=== PATIENT | female | born 1970 | race Caucasian/White ===

== ENCOUNTER → 2017-01-10 | Outpatient (CLI) | payer BC ==
[2017-01-11 15:10] LABS: BLOOD UREA NITROGEN 16 mg/dL (7-22); BUN/CREATININE RATIO 22.85 (6-20); CALCIUM 9.6 mg/dL (8.7-10.7); EST GLOMERULAR FILTRATION > 60 (>60 ml/min/1.73m(2)); SERUM ALBUMIN 3.9 g/dL (3.5-4.8)
== END ==
LOC: LAB 13:21
PROVIDERS: ATTEND Physician Assistant Medical
DX: K59.09 Other constipation (principal); R11.2 Nausea with vomiting, unspecified
CPT/HCPCS: 36415; 80053; 84443

== ENCOUNTER 2017-04-27 08:10 | Observation (INO) ==
[2017-04-27] MEDS ORDERED: NORMAL SALINE 10 ML SYRINGE FLUSH IVP PRN ×2 (08:33→11:17)
[2017-04-27] MEDS ORDERED: Sodium Chloride 0.9% 1,000 ML PRIMARY IV ONE ×2 (08:33→11:23)
--- NOTE | 2017-04-27 08:35 | EKG ---
[address] [address] Measurements Intervals [place] Rate: 73 P: 52 [place]: 132 QRS: 41 QRSD: 94 T: 45 QT: 380 QTc: 406 Interpretive Statements SINUS RHYTHM No previous ECG available for comparison Electronically Signed On 04-28-17 12:48:35 MST by John Cheng [email or web address]
[2017-04-27 08:52] LABS: Hematocrit [HCT] 39.6 % (37.0-47.0); Hemoglobin [HGB] 13.4 g/dL (12.0-16.0); MEAN CORPUSCULAR HEMOGLOBIN 32.6 PG (27-31); MEAN CORPUSCULAR HGB CONC 33.7 g/dL (33-37); MEAN CORPUSCULAR VOLUME 97 FL (81-99); MEAN PLATELET VOLUME 7.7 FL (7.4-12.2); MONOCYTES % (AUTO) 7.1 % (5-15); NEUTROPHILS % (AUTO) 74.5 % (50-80)
[2017-04-27 08:54] LABS: BASOPHILS # (AUTO) 0.03 10*3/UL; BASOPHILS % (AUTO) 0.4 % (0-1); EOSINOPHILS # (AUTO) 0.06 10*3/UL; EOSINOPHILS % (AUTO) 0.7 % (0-8); LYMPHOCYTES # (AUTO) 1.39 10*3/uL; MONOCYTES # (AUTO) 0.57 10*3/UL (0.3-0.8); NEUTROPHILS # (AUTO) 5.97 10*3/UL; PLATELET MORPHOLOGY COMMENT NORMAL MORPHOLOGY (NORM); RBC MORPHOLOGY COMMENT NORMAL MORPHOLOGY (NORM); WBC MORPHOLOGY COMMENT NORMAL MORPHOLOGY (NORM)
[2017-04-27 09:01] LABS: BLOOD UREA NITROGEN 20 mg/dL (7-22); BUN/CREATININE RATIO 28.57 (6-20); SERUM ALBUMIN 3.7 g/dL (3.5-4.8)
--- NOTE | 2017-04-27 09:48 | PDOC ---
Syncope/Near-Syncope HPI - General Chief Complaint: Syncope / Near-Syncope Stated Complaint: passing out Date Seen by Provider: 04/27/17 Time Seen by Provider: 08:12 Source: POSITIVE: Patient, Spouse Exam Limitations: POSITIVE: No limitations Nurse's Notes Reviewed & Considered: Yes - History of Present Illness Initial Comments: The patient is a 46-year-old female. She is brought to the emergency room by her . Patient states that for the past 10 days, approximately, she has had episodes of feeling "lightheaded" when she stands. Her symptoms usually moi when she sits. She states that when she gets these episodes she feels "hot". She states that she has passed out twice, the last time being approximately one week ago. 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 Patient also states that she has had some epigastric discomfort during this time and some diarrhea. She states she's had 5 loose bowel movements in the past 24 hours which range in color from "yellow to black. Patient has had a hysterectomy, cholecystectomy , and she thinks she had a appendectomy associated with her cholecystectomy. She's had a left hip replacement. No vomiting. On arrival the patient's blood pressure, left, was 116/84 with a pulse of 84 and standing was 52/45 with a pulse of 90. On the right side her blood pressure was 115/76 with a pulse of 81 sitting and her blood pressure was 111/76 with a pulse of 94 standing. Patient has not had any chest pain. No palpitations. Body Location Affected: REPORTS: Other (Syncope and near syncope, diarrhea, epigastric discomfort.) Timing: REPORTS: Intermittent Duration: >1 week (10 days, approximately) Severity: Moderate Quality: REPORTS: "Pain" (Some associated epigastric abdominal discomfort) Episode Began at:: 07:00 Most Recent Episode:: 04/27/17 Witnessed? (By Whom:): Yes ( and coworkers) Symptoms Prior to Episode: REPORTS: Lightheaded, Other (Exacerbated by standing , relieved by sitting) Duration of Preceding Symptoms (in Minutes): 1 Character of Event(s): REPORTS: Lost Consciousness (2 over the past 10 days) Duration of LOC (minutes): 1 FSBS FORGESMITH: No Associated Symptoms: REPORTS: Abdominal Pain (Epigastric discomfort), Lightheadedness, Other (please comment) (Diarrhea) Recently seen/treated/hospitalized: No Any Prior Injuries Related to Current Complaint?: No - Patient Home Medications Home Medications: Home Medications Esomeprazole Magnesium [Nexium] 40 mg PO BID #60 cap 11/19/16 varenicline 1 mg tablet 1 mg PO BID #180 tab 03/26/17 conjugated estrogens 1.25 mg tablet 1.25 mg PO QD #90 tab 04/02/17 duloxetine 60 mg capsule,delayed release 60 mg PO QDAY #90 cap 04/02/17 suvorexant 20 mg tablet 20 mg PO QHS #30 tab 04/02/17 tramadol 50 mg tablet 50 mg PO TID 90 Days #270 tab 04/02/17 - Patient Allergies Allergies/Adverse Reactions: Allergies 3 Allergy/AdvReac Type Severity Reaction Status Date / Time No Known Allergies Allergy Verified 04/27/17 08:18 Past Medical History - heen HEENT History: Denies History Cardiovascular History: Denies History Respiratory History: Denies History Gastrointestinal History: Denies History Genitourinary History: Denies History Endocrine History: Denies History Musculoskeletal History: Denies History Neurological History: Migraines Blood Disorders: Denies History Psychiatric History: Depression History of Sexually Transmitted Diseases: No Female Reproductive History: Hysterectomy Cancer History: Denies History In Past Year Been Physically Harmed or Verbally Threatened: No History of MDRO: No History of Other Communicable Diseases: No Tobacco Use: Former Smoker In the Past 12 Months, Have Used or Abuse Any Substance: None Previous Surgical History: Yes Type / Date of Surgery: hyst, gb, tonsils, left total hip Past Medical History Reviewed: Reviewed - No Changes ROS - Limitations ROS Limitations: No Limitations Constitution: REPORTS: Denies Symptoms Cardiovascular: REPORTS: Denies Cardiac Symptoms Respiratory: REPORTS: Denies Resp Symptoms Neurological: REPORTS: Dizziness Gastrointestinal: REPORTS: Abdominal Pain (Epigastric), Diarrhea Endocrine: REPORTS: Fatigue Musculoskeletal: REPORTS: Denies MS Symptoms Genitourinary: REPORTS: Denies Symptoms Eyes: REPORTS: Denies Symptoms ENT: REPORTS: Denies Symptoms Skin: REPORTS: Denies Skin Symptoms Lympathic: REPORTS: Denies Lympathic Symptoms Immunologic: POSITIVE: Denies Symptoms Psychiatric: POSITIVE: Denies Psych Symptoms Syncope / Near-Syncope Exam - General Appearance General Appearance: POSITIVE: Alert, Cooperative, No Acute Distress, No Evidence of Trauma - HEENT HEENT: POSITIVE: Head Inspection Nml, Eyes Inspection Nml, Ears Inspection Nml, Nose Inspection Nml, Oral/Dental Inspect. Nml, Pharynx Inspect. Nml, PERRL, EOMI - Pupil Size Pupil Size: 3 mm: Bilateral - Neck / Back Neck/Back: POSITIVE: Supple, Non-Tender, No Carotid Bruit - Respiratory Respiratory: POSITIVE: No Respiratoy Distress, Breath Sounds Normal, No Pleuritic Chest Pain - Cardiovascular Cardiovascular: POSITIVE: Regular Rate and Rhythm, Heart Sounds Normal, Equal Pulses, Strong Pulses Peripheral Pulses: Radial (R): 2+, Radial (L): 2+ - Abdomen Abdomen: Soft: (All Quadrants), Normal Bowel Sounds: (All Quadrants), Denies Tenderness: (LUQ), (RLQ), (LLQ), No Splenomegaly: (All Quadrants), No Hepatomegaly: (All Quadrants), No Guarding: (All Quadrants), No Rebound: (All Quadrants), No Palpable Pulse: (All Quadrants), No Palpabale Mass: (All Quadrants), No Distention: (All Quadrants), No Rigidity: (All Quadrants) Additional Abdominal Details: Abdominal examination shows bowel sounds to be active. Patient does express some discomfort/pain on palpation over the epigastrium, with no masses, organomegaly or rebound. - Rectal Rectal: POSITIVE: Normal Rectal Exam, Heme Negative Stool, Normal Rectal Tone, Other (Stool is light brown to yellow in appearance. Loose. Hemoccult negative ) - Skin Skin: POSITIVE: Intact, Normal For Race, Warm, Dry, No Rash - Extremities Extremity: Non-Tender: (All Extremities), Normal ROM: (All Extremities), Normal Inspection: (All Extremities) - Neuro / Psych Higher Functions: POSITIVE: Oriented to Person, Oriented to Place, Oriented to Time, Normal Speech, Normal Cognition, Appropriate Mood, Appropriate Affect Cranial Nerves: POSITIVE: Normal As Tested, No Evidence of Acute CVA Cerebellar: POSITIVE: Normal As Tested Sensorimotor: POSITIVE: No Motor Deficits, No Sensory Deficits, Reflexes Normal , Symmetrical Images - Complete Complete: 1 - Some discomfort on palpation Syncope/Near-Syncope Progress - Results Reviewed by me Lab Results Reviewed by Me: Yes (coags and troponin normal) CBC and BMP: 04/27/17 08:40 04/27/17 08:40 EKG Interpreted/Reviewed By Me:: Yes (normal sinus rhythm; normal) EKG Interpretation:: POSITIVE: Normal Sinus Rhythm, Normal Rate, Normal Intervals, Normal [place], Normal QRS, Normal ST/T - Patient's Progress Pain Medication Addressed: POSITIVE: Not Applicable Re-examine Time: :25 Re-Examine Comment: Condition unchanged. Patient and her advised that I 'm not sure what the source of her syncope/near-syncope is. Patient admitted to hospitalist for further evaluation. Status: POSITIVE: Unchanged CVA/Syncope Quality Measure Initiative: POSITIVE: EKG. NEGATIVE: t-PA Considered - Consult Consult (If Yes, Name of Consulting MD & Time Called): Yes (Dr. Sharpe, hospitalist,[id number]) Consulting MD will see pt:: POSITIVE: [facility] Admit Counseled: POSITIVE: Patient, Family, RE: Lab Results, RE: DX, RE: Need for F/U Patient Care Time - Estimated PCT Patient Care Time (In Minutes): 50 Vital Signs - Recent Vital Signs Vital Signs: Vital Signs (Last 8 hours) Temp Pulse Pulse Pulse Pulse Resp BP 04/27/17 09:02 84 94 04/27/17 09:00 84 84 90 04/27/17 08:23 96.7 F L 84 18 107/61 BP BP BP Pulse Ox 04/27/17 09:02 115/78 111/76 04/27/17 09:00 107/61 116/84 56/45 04/27/17 08:23 97 - VS Reviewed Vital Signs Reviewed: Yes Discharge Clinical Impression: Syncope, Near syncope Discharge Disposition: Admit to Inpatient Follow Up With: BENITA MCCARTHY [Primary Care Provider] - Date Decision to Admit to Inpatient: 04/27/17 Time Decision to Admit to Inpatient: 09:20
[2017-04-27] MEDS ORDERED: LIDOCAINE W/ SODIUM BICARB 0.5 ML SYR SUBD PRN (11:17)
[2017-04-27] MEDS ORDERED: DOCUSATE 100 MG CAPSULE PO PRN (11:17)
[2017-04-27] MEDS ORDERED: CALCIUM CARBONATE 500 MG (TUMS) CHEWABLE TABLET PO PRN (11:17)
[2017-04-27] MEDS ORDERED: ONDANSETRON 4 MG/2 ML VIAL IVP PRN (11:17)
[2017-04-27] MEDS ORDERED: Sodium Chloride 0.9% 1,000 ML PRIMARY IV SCH (11:30)
--- NOTE | 2017-04-27 11:31 | PDOC ---
HPI - History of Present Illness History of Present Illness: This very nice 46-year-old female was brought into the emergency room by her because for the last 10 days she has been feeling lightheaded every time she stands up had 2 syncopal episodes already 1 week ago this morning she was working [employer] in the [employer] store had another near-syncope episode also had some diarrhea in the last 24 hours. In the ER blood pressure on arrival was 116/84 and a pulse of 84/when they stood her up it was 52/45 with a pulse of 90. She is doing fine now no chest pain nausea or vomiting Past Medical History Medical History: Patient is on insomnia medications and also on Chantix and PPI for heartburn Surgical History: Cholecystectomy appendectomy right hip replacement Tobacco Use: Former Smoker In the Past 12 Months, Have Used or Abuse Any of the Following Substance: None Medication / Allergies Home Medications: Home Medications Medication Instructions Recorded Confirmed Type Esomeprazole Magnesium [Nexium] 40 mg PO BID #60 cap 11/19/16 04/27/17 Rx varenicline 1 mg tablet 1 mg PO BID #180 tab 03/26/17 04/27/17 Rx conjugated estrogens 1.25 mg tablet 1.25 mg PO QD #90 tab 04/02/17 04/27/17 Rx duloxetine 60 mg capsule,delayed 60 mg PO QDAY #90 cap 04/02/17 04/27/17 Rx release suvorexant 20 mg tablet 20 mg PO QHS #30 tab 04/02/17 04/27/17 Rx tramadol 50 mg tablet 50 mg PO TID 90 Days #270 tab 04/02/17 04/27/17 Rx Allergies/Adverse Reactions: Allergies 3 Allergy/AdvReac Type Severity Reaction Status Date / Time No Known Allergies Allergy Verified 04/27/17 10:29 Review of Systems - Review of Systems All Systems: Reviewed & No Additional Complaints Except as Stated - Eye Exam Eye Exam: DENIES: Negative System Review, Acuity Good, Acuity Fair, Acuity Poor , Glasses/Contacts, Vision Loss, Blurring, Redness, Diplopia, Catarats, Other, See HPI - Cardiovascular Cardiovascular: DENIES: Negative System Review, Chest Pain, Edema, Syncope, Palpitations, Orthopnea, Paroxysmal Nocturnal Dyspnea, Other, See HPI - Gastrointestinal Gastrointestinal / Abdominal: DENIES: Negative System Review, Nausea, Vomiting, Diarrhea, Constipation, Abdominal Pain, Bloody Stool, Poor Appetite, Heartburn, Regurgitation, Bloating, Lactose Intolerance, Melena, Bright Red Blood per Rectum, Other, See HPI - Genitourinary Genitourinary: DENIES: Negative System Review, Pain, Burning, Hematuria, Incontinence, Urgency, Hesitant Stream, Decreased Stream, Nocutria, Discharge, Sexual Dysfunction, Other, See HPI - Neurological Neurologic: DENIES: Negative System Review, Headache, Numbness/Paresthesia, Tremors, Weakness, Seizures, Head Trauma, LOC, Dizziness, Confusion, Memory Loss , Difficulty Walking, Incoordination, Other, See HPI Exam - Vitals Vital Signs: Vital Signs Respiratory Rate 16 Oxygen Delivery Method Room Air Height 5 ft 6 in Weight 221 lb 4 oz - General General Appearance: No Acute Distress, Cooperative - Head Head Exam: Normal Inspection, Normocephalic, Atraumatic - Respiratory Respiratory Exam: POSITIVE: Clear to Auscultation - Bilaterally, Breathing Non Labored, Normal To Percussion - Cardiovascular Cardiovascular Exam: POSITIVE: RRR, No Murmur, No Clicks - GI/Abdominal GI/Abdominal Exam: POSITIVE: Non Tender, Non Distended, Soft - Extremities Extremities Exam: POSITIVE: No Clubbing Present, No Edema Present, No Cyanosis Present - Neurological Neurological Exam: POSITIVE: Alert, Oriented x 3, CN II-XII Intact, No Facial Droop, Speech Intact / Clear - Psychiatric Psychiatric Exam: POSITIVE: Normal Affect Results - Labs CBC and BMP: 04/27/17 08:40 04/27/17 08:40 Assessment and Plan - Patient Problems (1) Orthostatic hypotension Current Visit: Yes Status: Acute Comment: Patient is on tramadol which causes orthostatic hypertension hypotension also she is on's Chantix which causes dizziness amongst other side effects and then insomnia medication as well most likely this is related to medication I will hydrate the patient already repeat orthostatic blood pressure measurements are within normal range now she only received a 500 of normal saline thus far we will replace her potassium and check a magnesium as well I will do carotid ultrasounds, we will also do an ultrasound of her heart Code(s): I95.1 - Orthostatic hypotension (2) Near syncope Current Visit: Yes Status: Acute Code(s): R55 - Syncope and collapse
[2017-04-27] MEDS: ACETAMINOPHEN 325 MG TABLET PO PRN ×2 (11:46→19:16)
[2017-04-27] MEDS: DULOXETINE 60 MG CAPSULE PO SCH (12:10)
[2017-04-27] MEDS ORDERED: Magnesium Sulfate 2gm (Premix) 2 GM/50 ML BAG IV ONE (13:00)
[2017-04-27] MEDS ORDERED: Zolpidem Tab 5 MG TAB PO PRN (15:27)
[2017-04-27] MEDS: KETOROLAC 15 MG/1 ML VIAL IVP PRN ×2 (15:40→22:31)
--- NOTE | 2017-04-27 18:05 | DI ---
History: Physician Notes: Tech Comments: Exam: US CAROTID Comparison: None available FINDINGS: Bilateral symmetric appearing prominent intimal appearance at the common carotid arteries is nonspecific. Right: Common carotid artery distal 93/17 (PSV/EDV) cm/s Common carotid artery bulb 63/10 Internal carotid artery proximal 75/22 Internal carotid artery mid 61/24 Internal carotid artery distal 63/9 External carotid artery proximal 138/9 ICA/CCA ratio 0.81 Left: Common carotid artery distal 91/17 (PSV/EDV) cm/s Common carotid artery bulb 49/4 Internal carotid artery proximal 61/20 Internal carotid artery mid 75/46 Internal carotid artery distal 61/24 External carotid artery proximal 106/11 ICA/CCA ratio 0.82 Bilateral vertebral arterial flow noted IMPRESSION: No evidence of hemodynamic flow significant stenosis.
[2017-04-27] MEDS ORDERED: OMEPRAZOLE 40 MG CAPSULE PO ONE (19:20)
[2017-04-28 06:32] LABS: Hematocrit [HCT] 36.7 % (37.0-47.0); MEAN CORPUSCULAR HEMOGLOBIN 31.7 PG (27-31); MEAN CORPUSCULAR HGB CONC 32.8 g/dL (33-37); MEAN CORPUSCULAR VOLUME 97 FL (81-99); MEAN PLATELET VOLUME 7.8 FL (7.4-12.2); RED BLOOD COUNT 3.8 10^6/uL (4.20-5.40)
[2017-04-28 06:35] LABS: BLOOD UREA NITROGEN 11 mg/dL (7-22); BUN/CREATININE RATIO 18.33 (6-20); SERUM ALBUMIN 3.1 g/dL (3.5-4.8)
[2017-04-28] MEDS: OMEPRAZOLE 40 MG CAPSULE PO SCH ×2 (07:41→16:00)
[2017-04-28] MEDS: ESTROGENS,CONJUGATED 0.625 MG TABLET PO SCH (10:12)
[2017-04-28] MEDS: DULOXETINE 60 MG CAPSULE PO SCH (10:12)
--- NOTE | 2017-04-28 10:25 | DCSUMMARY ---
Hospitalization Summary Hospital Course: Final Discharge Diagnosis: Current Visit Problems Problem Status Onset Code Syncope Acute R55 Near syncope Acute R55 Orthostatic hypotension Acute I95.1 Diagnostic Data, Laboratory Data, and Procedures of Signifigance: Laboratory Results 04/27/17 04/28/17 04/28/17 Range/Units 08:54 05:45 05:45 WBC 5.5 (4.8-10.8) 10^3/uL RBC 3.8 L (4.20-5.40) 10^6/uL Hgb 12.0 (12.0-16.0) g/dL Hct 36.7 L (37.0-47.0) % MCV 97 (81-99) FL MCH 31.7 H (27-31) PG MCHC 32.8 L (33-37) g/dL RDW Coeff of Ino 12.4 (11.5-14.5) % Plt Count 192 (140-350) 10*3/uL MPV 7.8 (7.4-12.2) FL Sodium 142 (135-145) meq/L Potassium 3.9 (3.8-5.2) meq/L Chloride 114 H (98-112) meq/L Carbon Dioxide 21 L (23-33) meq/L Anion Gap 7 (5-20) BUN 11 (7-22) mg/dL Creatinine 0.6 (0.50-1.20) mg/dL Estimated GFR > 60 (>60 ml/min/1.73m(2)) BUN/Creatinine Ratio 18.33 (6-20) Glucose 82 (78-110) mg/dL Calculated Osmolality 291.0 (267-292) mOsm/kg Calcium 8.3 L (8.7-10.7) mg/dL Magnesium 1.7 (1.6-2.4) mg/dL Total Bilirubin 0.3 D (0.3-1.2) mg/dL AST 22 (8-39) IU/L ALT 28 (9-52) IU/L Alkaline Phosphatase 102 (38-126) IU/L Total Protein 5.7 L (6.1-8.0) g/dL Albumin 3.1 L (3.5-4.8) g/dL Globulin 2.6 (2.50-4.10) g/dL Albumin/Globulin Ratio 1.10 L (1.3-2.0) mg/g History and Physical pertinent to Admission: Course of Hospitalization: patient will be discharged stable and improved condition and follow-up with her primary care physician On the date of discharge, the patient was examined: Gen.: No acute distress, alert, nontoxic Heart: Regular rate and rhythm, no murmurs, clicks, gallops, or rubs Lungs: Clear to auscultation bilaterally, breathing is nonlabored Abdomen/GI: Normal tones on auscultation, soft, nontender, nondistended Musculoskeletal/extremities: No clubbing, cyanosis, or edema Vitals reviewed and are listed below Assessment and Plan: 1. As per discharge assessments above 2. Disposition: Home 3. Condition on discharge, stable and improved. 4. Diet: regular diet 5. Activities: resume normal activities 6. Follow-Up: 1. PCP 2. 7. Medications at the Time of Discharge: 8. Time, care, counseling and coordination of care for this discharge is greater than 30 minutes. Exam - Vitals Vital Signs: Vital Signs Temperature 97 F Temperature Source Temporal Artery Scan Pulse Rate [Pulse Oximeter] 68 Pulse Rate 74 Respiratory Rate 18 Blood Pressure [Right Arm] 125/95 Pulse Ox 98 Oxygen Delivery Method Room Air Height 5 ft 6 in Weight 225 lb Patient Problems - Patient Problem List (1) Orthostatic hypotension Current Visit: Yes Status: Acute Code(s): I95.1 - Orthostatic hypotension Category: Medical (2) Near syncope Current Visit: Yes Status: Acute Code(s): R55 - Syncope and collapse Category: Medical
[2017-04-28] MEDS: ACETAMINOPHEN 325 MG TABLET PO PRN (11:56)
--- NOTE | 2017-04-28 13:00 | PDOC(PROG) ---
Interval History: Is a very nice 46-year-old female with history of insomnia tobacco use and chronic migraine headaches. Comes in because over the last 10 days she's been feeling dizzy when she gets up from the chair she has not fallen or had any syncopal episodes. She had orthostatic hypotension in the ER with values from 122 50/42 standing patient was rehydrated that since she was dry her medications consisting of Chantix tramadol and a sleep medication all can cause orthostatic hypotension specifically the tramadol I've instructed her not to take these medications since they're causing I believe her hypotension. She did insist on one thing Ambien even though she was told that this might cause hypotension again and we were trying to figure out if the meds were to cause. She still wanted to sleep medication. Potassium and magnesium were replaced she has no more orthostatic hypotension since this was checked again. Carotid Doppler of the carotids are within normal limits echo was done and preliminary report from the medical office technician was within normal limits we'll await final report . She is complaining of some abdominal pain mild her diarrhea has been every hour she says that this is chronic and that stopped yesterday on admission but resumed. I will order a CT scan of the abdomen and pelvis and send stool culture for cultures C. difficile and other lab work patient agrees and understands I read to her all the side effects of the premedication she is taking at home one by one which corresponds exactly to every symptom she has. She also had no problems sleeping last night without any case work aide Objective : Data - Labs CBC and BMP: 04/28/17 05:45 04/28/17 05:45 Objective : Exam - General General Appearance: Cooperative - Neck Neck Exam: Normal Inspection, Full ROM, No Tenderness - Respiratory Respiratory Exam: Clear to Auscultation - Bilaterally, Breathing Non Labored, Normal To Percussion, Normal to Percussion and Palpation - Cardiovascular Cardiovascular Exam: RRR, No Murmur, No Clicks, No Gallops, No Rubs, PMI Non- Displaced - GI/Abdominal Additional GI/Abdominal Exam Details: Mild the pain no guarding or rebound epigastric area Assessment and Plan - Patient Problems (1) Orthostatic hypotension Current Visit: Yes Status: Acute Comment: This is resolved most likely secondary to medication adverse reaction especially tramadol sent takes and in some new medication retested her blood pressure both the standing laying down it up all within normal limits when she walks she is not dizzy this is resolved Code(s): I95.1 - Orthostatic hypotension (2) Diarrhea Current Visit: Yes Status: Acute Comment: Chronic for 3 weeks she said she had it every hour overnight and this morning check CT scan abdomen and pelvis and stool for C. difficile and other cultures Code(s): R19.7 - Diarrhea, unspecified
[2017-04-28] MEDS: KETOROLAC 15 MG/1 ML VIAL IVP PRN (16:03)
--- NOTE | 2017-04-28 17:07 | DI ---
History: Physician Notes: Tech Comments: Exam: CT ABDOMEN + PELVIS With Contrast axial images through the abdomen and pelvis following administration 95 cc of Isovue-300 contrast intravenously with multiplanar reformatted images Comparison: None available FINDINGS: The lung bases are clear. [place] artifact from left hip replacement. Status post cholecystectomy. The liver, adrenal glands, kidneys, spleen, pancreas and abdominal aorta appear within limits. No bowel dilation or free air. The colon is diffusely underdistended and there appears to be diffuse colonic wall thickening with pericolonic stranding suggested along the ascending colon concerning for possible colitis, clinically correlate. Small pelvic free fluid. IMPRESSION: The colon is diffusely underdistended and there appears to be diffuse colonic wall thickening with pericolonic stranding suggested along the ascending colon concerning for possible colitis, clinically correlate. Small pelvic free fluid. [place] artifact from left hip replacement. Status post cholecystectomy.
[2017-04-28] MEDS ORDERED: Ertapenem Inj 1 GM in Sodium Chloride 0.9% 100 ML IV SCH (18:00)
[2017-04-29 06:28] LABS: BASOPHILS % (AUTO) 0.3 % (0-1); EOSINOPHILS % (AUTO) 0.7 % (0-8); Hemoglobin [HGB] 12.6 g/dL (12.0-16.0); LYMPHOCYTES # (AUTO) 1.61 10*3/uL; MEAN CORPUSCULAR HEMOGLOBIN 32.7 PG (27-31); MEAN CORPUSCULAR HGB CONC 33.9 g/dL (33-37); MEAN CORPUSCULAR VOLUME 96 FL (81-99); MEAN PLATELET VOLUME 8.1 FL (7.4-12.2); NEUTROPHILS % (AUTO) 63.6 % (50-80); RED BLOOD COUNT 3.84 10^6/uL (4.20-5.40)
[2017-04-29 06:29] LABS: BASOPHILS # (AUTO) 0.02 10*3/UL; EOSINOPHILS # (AUTO) 0.04 10*3/UL; PLATELET MORPHOLOGY COMMENT NORMAL MORPHOLOGY (NORM); RBC MORPHOLOGY COMMENT NORMAL MORPHOLOGY (NORM); WBC MORPHOLOGY COMMENT NORMAL MORPHOLOGY (NORM)
[2017-04-29 06:32] LABS: BLOOD UREA NITROGEN 7 mg/dL (7-22); BUN/CREATININE RATIO 11.66 (6-20); SERUM ALBUMIN 3.4 g/dL (3.5-4.8)
[2017-04-29] MEDS: OMEPRAZOLE 40 MG CAPSULE PO SCH (08:44)
[2017-04-29] MEDS: ESTROGENS,CONJUGATED 0.625 MG TABLET PO SCH (08:44)
[2017-04-29] MEDS: DULOXETINE 60 MG CAPSULE PO SCH (08:44)
[2017-04-29 09:22] VITALS: BP 148/86; RESP 18; TEMP 97.2; O2SAT 96
[2017-04-29] MEDS ORDERED: POTASSIUM CHLORIDE 20 MEQ TAB PO ONE (09:47)
--- NOTE | 2017-04-29 09:59 | PDOC(PROG) ---
Date and Time of Service: 04/29/2017 9:56 AM Interval History: Subjective Patient feels better compared to when she came in. She came in because of lightheadedness especially with standing up. In addition she did report upset stomach with diarrhea. She is been going often to the bathroom maybe every half an hour according to her last week with moderate-sized volume no bleeding. Some nausea, she did vomited twice. She did say that she was given a diagnosis of colitis before she had 2 colonoscopies and last one was done a year ago by Dr. Umanzor. She said she was giving antibiotics. She said she also had a C. difficile infection in the past. Objective : Data - Labs CBC and BMP: 04/29/17 05:55 04/29/17 05:55 Objective : Exam - General General Appearance: No Acute Distress, Cooperative, Obese - Head Head Exam: Normal Inspection, Atraumatic - Eye Eye Exam: Normal Appearance - ENT ENT Exam: Normal Exam - Neck Neck Exam: Normal Inspection - Respiratory Respiratory Exam: Clear to Auscultation - Bilaterally - Cardiovascular Cardiovascular Exam: RRR - GI/Abdominal GI/Abdominal Exam: Normal Bowel Sounds, Non Tender, Non Distended, Soft - Rectal Rectal Exam: Deferred - External Exam: Deferred Exam: Deferred - Extremities Extremities Exam: Normal Inspection - Back Back Exam: Normal Inspection - Neurological Neurological Exam: Alert, Oriented x 3, CN II-XII Intact, Moves All Extremities Equally - Psychiatric Psychiatric Exam: Normal Affect - Integumentary Integumentary Exam: Normal Color Assessment and Plan - Patient Problems (1) Near syncope Current Visit: Yes Status: Acute Comment: This is secondary to postural hypotension resolved. Probably medication related in addition to fluid loss. This is resolved. Code(s): R55 - Syncope and collapse (2) Colitis Current Visit: Yes Status: Acute Comment: CT showed evidence of colitis. She was put on Invanz. I did speak with Dr. Michaels he suggested to follow-up with Dr. Umanzor. We'll try to get records from Dr. Umanzor. I may also try to reach him. And see his recommendations. Code(s): K52.9 - Noninfective gastroenteritis and colitis, unspecified
--- NOTE | 2017-04-29 12:44 | DCSUMMARY ---
Hospitalization Summary Admit Date: 04/27/2017 Discharge Date: 04/29/17 Hospital Course: Discharge diagnoses 1. Syncope secondary to postural hypotension 2. Postural hypotension, probably secondary to fluid loss from diarrhea and possibly medications related. 3. History of collagenous colitis 4. History of migraines 5. History of GERD Hospital course This is a 46 years old female with medical history significant for history of GERD, history of previous collagenous colitis who presented to the hospital history of lightheadedness which has been going on for about 10 days worse with standing, in addition she did report diarrhea this has been going on for 3 days. She also reported near syncope that happened twice. When she came into the ER it was found that her blood pressure was 116/84 lying down , and when she stood up her blood pressure dropped to 52/45 she was given fluids and was admitted to the hospital. She was admitted by Dr. Dewitt please see his note. It was thought that the hypotension is probably related to medication and hypovolemia. Her symptoms resolved after the hydration. She did have an ultrasound of the carotids and was negative. She did have an echo however I don 't have the result. She had stool test and they were negative for C. difficile. Rare white BCs were found. Culture was sent. A CT of the abdomen raised the possibility of colitis in the ascending colon, she was given Invanz. I saw the patient the next day. She continued to have the diarrhea, but she said the diarrhea is less than what it was before. She did say that she had a history of colitis however she did not know the kind of it. She said she had 2 colonoscopies before done by Dr. Wade. She gave also history of C. difficile. As I said the C. difficile test was negative this time. I did speak with the surgeon who suggested referral to Dr. Wade. I did speak with Dr. Wade who said that the patient had collagenous colitis on the colonoscopy that she had in 2014. He suggested that we put her on steroid and follow-up with him as an outpatient. I did explain that to the patient we discharge her on tapering dose of steroid as suggested by Dr. Wade. Laboratory Results 04/29/17 04/29/17 Range/Units 05:55 05:55 WBC 5.7 (4.8-10.8) 10^3/uL RBC 3.84 L (4.20-5.40) 10^6/uL Hgb 12.6 (12.0-16.0) g/dL Hct 37.0 (37.0-47.0) % MCV 96 (81-99) FL MCH 32.7 H (27-31) PG MCHC 33.9 (33-37) g/dL RDW Coeff of Ino 11.8 (11.5-14.5) % Plt Count 192 (140-350) 10*3/uL MPV 8.1 (7.4-12.2) FL Neut % (Auto) 63.6 (50-80) % Lymph % (Auto) 28.4 (10-50) % Ballard % (Auto) 7.0 (5-15) % Eos % (Auto) 0.7 (0-8) % Baso % (Auto) 0.3 (0-1) % Neut # (Auto) 3.60 10*3/UL Lymph # (Auto) 1.61 10*3/uL Ballard # (Auto) 0.40 (0.3-0.8) 10*3/UL Eos # (Auto) 0.04 10*3/UL Baso # (Auto) 0.02 10*3/UL WBC Morphology Comment Normal morphology (NORM) Plt Morphology Comment Normal morphology (NORM) RBC Morph Comment Normal morphology (NORM) Sodium 143 (135-145) meq/L Potassium 3.5 L (3.8-5.2) meq/L Chloride 112 (98-112) meq/L Carbon Dioxide 22 L (23-33) meq/L Anion Gap 9 (5-20) BUN 7 (7-22) mg/dL Creatinine 0.6 (0.50-1.20) mg/dL Estimated GFR > 60 (>60 ml/min/1.73m(2)) BUN/Creatinine Ratio 11.66 (6-20) Glucose 80 (78-110) mg/dL Calculated Osmolality 292.0 (267-292) mOsm/kg Calcium 8.9 (8.7-10.7) mg/dL Total Bilirubin 0.2 L (0.3-1.2) mg/dL AST 24 (8-39) IU/L ALT 32 (9-52) IU/L Alkaline Phosphatase 105 (38-126) IU/L Total Protein 6.1 (6.1-8.0) g/dL Albumin 3.4 L (3.5-4.8) g/dL Globulin 2.7 (2.50-4.10) g/dL Albumin/Globulin Ratio 1.20 L (1.3-2.0) mg/g Discharge instruction Diet regular Activity as started Medications Home Medications Medication Instructions Recorded Confirmed Type Esomeprazole Magnesium [Nexium] 40 mg PO BID #60 cap 11/19/16 04/27/17 Rx conjugated estrogens 1.25 mg tablet 1.25 mg PO QD #90 tab 04/02/17 04/27/17 Rx duloxetine 60 mg capsule,delayed 60 mg PO QDAY #90 cap 04/02/17 04/27/17 Rx release Potassium Chloride [Klor-Con] 10 meq PO DAILY #7 tab 04/29/17 Rx Prednisone 20 mg PO DAILY #25 tab 04/29/17 Rx Follow-up with her PCP and follow-up with Dr. Wade in 1-2 weeks Condition at discharge was stable for discharge Exam - Vitals Vital Signs: Vital Signs Temperature 97.2 F Temperature Source Temporal Artery Scan Pulse Rate [Apical] 64 Pulse Rate [Pulse Oximeter] 68 Pulse Rate 65 Respiratory Rate 18 Blood Pressure [Right Arm] 148/86 Blood Pressure [Left Arm] 145/83 Pulse Ox 96 Oxygen Delivery Method Room Air Height 5 ft 6 in Weight 225 lb Patient Problems - Patient Problem List (1) Near syncope Status: Acute Code(s): R55 - Syncope and collapse Category: Medical (2) Colitis Status: Acute Code(s): K52.9 - Noninfective gastroenteritis and colitis, unspecified Category: Medical
== END 2017-04-29 12:37 | disposition home or self-care (01) ==
LOC: MED/SURG 08:10 → ER 08:10
PROVIDERS: ADMIT Internal Medicine; ATTEND Internal Medicine